=== PATIENT | female | born 1975 | race Caucasian/White ===

== ENCOUNTER 2017-05-16 19:22 | Emergency (ER) | payer SELFPAY ==
[~2017-05-16] VITALS: Ht 167.6 cm; Wt 57.0 kg
[2017-05-16] MEDS ORDERED: HALOPERIDOL LACTATE 5MG/ML VIAL IM ONE (19:45)
[2017-05-16] MEDS ORDERED: DIPHENHYDRAMINE 50MG/ML VIAL IM ONE (19:45)
[2017-05-16] MEDS ORDERED: LORAZEPAM 2MG/ML CPJ IM ONE (19:45)
[2017-05-16 20:31] LABS: BASOPHILS % 1.1 % (0.0-2.0); EOSINOPHILS % 2.3 % (0.0-5.0); HEMATOCRIT. 39.5 % (36.0-48.0); HEMOGLOBIN. 13.2 g/dL (12.0-16.0); LYMPHOCYTES % 21.7 % (20.0-50.0); MEAN CORPUSCULAR HEMOGLOBIN 30.8 pg (28.0-32.0); MEAN CORPUSCULAR VOLUME 92.1 fL (81.0-99.0); MEAN PLATELET VOLUME 7.8 fl (7.4-10.4); MONOCYTES % 6.2 % (2.0-8.0); NEUTROPHILS % 68.7 % (40.0-76.0); PLATELET 229 x1000/uL (130-400); RED BLOOD CELL COUNT 4.28 mill/uL (4.2-5.4); RED CELL DISTRIBUTION WIDTH 13.7 % (11.6-14.6)
[2017-05-16 20:42] LABS: HCG SCREEN NEGATIVE
[2017-05-16 20:45] LABS: CARBON DIOXIDE 20 mEq/L (21-32); CHLORIDE 114 mEq/L (98-107); ETHANOL BLOOD 187 mg/dL
[2017-05-16 21:07] LABS: CLARITY URINE CLEAR (CLEAR); COLOR URINE YELLOW (YELLOW); GLUCOSE URINE NEGATIVE (NEGATIVE); KETONES URINE NEGATIVE (NEGATIVE); LEUKOCYTE ESTERASE URINE NEGATIVE (NEGATIVE); NITRITE URINE NEGATIVE (NEGATIVE); OCCULT BLOOD URINE TRACE (NEGATIVE); PROTEIN URINE NEGATIVE (NEGATIVE); SPECIFIC GRAVITY URINE 1.011 (1.005-1.030); UROBILINOGEN URINE 0.2 E.U./dL (0.2-1.0)
[2017-05-16 21:18] LABS: *AMPHETAMINES SCREEN URINE NEGATIVE (NEGATIVE); *BARBITURATES SCREEN URINE NEGATIVE (NEGATIVE); *BENZODIAZEPINES SCREEN URINE NEGATIVE (NEGATIVE); *COCAINE SCREEN URINE NEGATIVE (NEGATIVE); METHADONE URINE SCREEN NEGATIVE (NEGATIVE); OPIATES URINE SCREEN NEGATIVE (NEGATIVE); PHENCYCLIDINE URINE SCREEN NEGATIVE (NEGATIVE)
[2017-05-16 21:25] LABS: CANNABINOID URINE SCREEN PRESUMTIVE POSITIVE (NEGATIVE)
[2017-05-16] MEDS ORDERED: SODIUM CHLORIDE 0.9% 1,000 ML IV ONE ×2 (22:15→23:43)
[2017-05-17 06:09] VITALS: BP 98/62
== END 2017-05-17 07:21 | disposition home or self-care (01) ==
LOC: ER 21:30
DX: F91.8 Other conduct disorders (principal); F10.129 Alcohol abuse with intoxication, unspecified; Y90.6 Blood alcohol level of 120-199 mg/100 ml; F12.929 Cannabis use, unspecified with intoxication, unspecified; Z88.6 Allergy status to analgesic agent
CPT/HCPCS: 36415; 80053; 80305; 80307; 80329; 81001; 84703; 85025; 96361; 96372; 99284; G0482; J1200; J1630; J2060; J7030; Z7610